=== PATIENT | male | born 2000 | race Caucasian/White ===

== ENCOUNTER 2023-05-23 21:54 | Emergency (ER) | payer SELFPAY ==
--- OUTSIDE RECORDS SUMMARY | 2023-05-23 21:57 | XMS REPORT | Continuity of Care Document ---
Author Name Unknown Address [address] [facility]. [address] [place] [id number] [facility] thcessentia healthect Address [address] [facility]. [address] [place] [address] Care Team Providers Care Material Controller Name Role Phone PCP, PATIENT DOES NOT HAVE A Primary Care Physic abhijit Unavailable JEFF YAÑEZ Attending Clinician Unavail able Taylor Stern PA-C Attending Clinician [phone] Unknown, Attending Attending Clinician Unavailab TAYLOR Hicks Attending Clinician Unavailable Rosangela Metz Attending Clinician [phone] ROSANGELA CASIANO Attending Clinician Unavailable JENNA WATERMAN Attending Clinician Unavailable Jenna Waterman MD Attending Clinician [phone] JOANNE MARCUS Attending Clinician Unavaila Joanne Boswell Attending Clinician + [phone] RUBI KRAUSE Attending Clinician Unavailable Rubi Griffiths Attending Clinician [phone] DONNA MACIEL Attending Clinician Unavailable UNKNOWN, ATTENDING Attending Clinician Unavailab александр Doctor Unassigned, Lynden Attending Clinician U nakul Zamorano RN, Lizzie Berrios Attending Clinician GILLIAN Mccarty Attending Clinician Unavailable Gillian Ferguson MD Attending Clinician [phone] Pauline Hodges Attending Clinician [phone] PAULINE TOMLINSON Attending Clinician Unavailable Ekaterina Garrison Attending Clinician [phone] Ekaterina FLORES Attending Clinician Unavailable Payers Payer Name Policy Type Policy Number Effective Date Expirati on Date Source MANAGED MEDICAID GENERIC NON-CONTRACT [id number] 2019 00:00:00 [place] [employer] [id number] 2021 00:00:00 Problems Condition Name Condition Details Condition Category Status Onset Date Resolution Date Last Treatment Date Treating Clinician Comments Source No known active problems No known active problems Disease [facility] Allergies, Adverse Reactions, Alerts Allergy Name Allergy Type Status Severity Reaction(s) Onset Date Inactive Date Treating Clinician Comments Source NO KNOWN ALLERGIE S Drug Class Active [facility] Social History Social Habit Start Date Stop Date Quantity Comments Source Gender identity [facility] Social function 2021-12-13 00:00:00 2021-12-13 00:00:00 [facility] Exposure to SARS-CoV-2 (event) 2021-12-02 00:00:00 2021-12-12 13:54:00 Not sure [facility] Tobacco use and exposure 2021-07-09 00:00:00 2021-07-09 00:00:00 Smokeless tobacco non-user [facility] Sex Assigned At 2000 00:00:00 2000 00:00:00 [facility] Smoking Status Start Date Stop Date Source Never smoked tobacco [facility] Unknown if ever smoked [facility] Medications Ordered Medication Name Filled Medication Name Start Date Stop Date Current Medication? Ordering Clinician Indication Dosage Frequency Signature (SIG) Comments Components Source ondansetron 4 mg disintegrat ing tablet 10-31 00:00: 00 Yes [id number] 4mg Take 1 tablet by mouth every 8 (eight) hours as needed for Nausea and Vomiting (N/V). [facility] naproxen 500 mg tablet 10-15 00:00: 00 10-26 04:59 :00 No [id number] 500mg Take 1 tablet by mouth 2 (two) times daily with meals as needed for Pain (scale 4-6) for up to 10 days. [facility] methocarbam oL 500 mg tablet 10-15 00:00: 00 10-21 04:59 :00 No [id number] 500mg Take 1 tablet by mouth 4 (four) times daily for 5 days. [facility] ondansetron (ZOFRAN (PF)) injection 4 mg 09-30 04:30: 00 09-30 04:03 :00 No 4mg 4 mg, Slow IV Push, ONCE, 1 dose, On Thu09/29/22 at 2330, EBENEZER [facility] NaCl 0.9% (NS) bolus infusion 1,000 mL 09-30 03:45: 00 09-30 04:05 :00 No 1000mL at 999 mL/hr, 1,000 mL, IV Infusion, ONCE, 1 dose, On Thu09/29/22 at 2245, EBENEZER [facility] bromphenira mine-pseudo ephedrine-D M (BROMFED DM) 2-30-10 mg/5 mL syrup 07-09 00:00: 00 12-13 00:00 :00 No [id number] 5mL Take 5 mL by mouth 4 (four) times daily as needed for Congestion /Allergies . [facility] ondansetron 4 mg disintegrat ing tablet 07-09 00:00: 00 12-13 00:00 :00 No [id number] 4mg Take 1 tablet by mouth every 8 (eight) hours as needed for Nausea and Vomiting (N/V). [facility] NaCl 0.9% (NS) bolus infusion 1,000 mL 11-07 01:45: 00 11-07 13:44 :00 No 1000mL at 999 mL/hr, 1,000 mL, IV Infusion, ONCE, 1 dose, Thu11/07/19 at 2045, STAT [facility] No known medications No Un maida [facility] No known medications No Un maida [facility] Vital Signs Vital Name Observation Time Observation Value Comments S segundo Systolic blood pressure 2022-10-31 19:53:00 126 mm[Hg] [facility] Diastolic blood pressure 2022-10-31 19:53:00 85 mm[Hg] [facility] Heart rate 2022-10-31 19:52:00 83 /min Unive [facility] Body temperature 2022-10-31 19:52:00 36.89 Cheryle [facility] Respiratory rate 2022-10-31 19:52:00 18 /min [facility] Body height 2022-10-31 19:52:00 177.8 cm [facility] Body weight 2022-10-31 19:52:00 79.697 kg [facility] BMI 2022-10-31 19:52:00 25.21 kg/m2 [facility] Oxygen saturation in Arterial blood by Pulse oximetry 2022-10-31 19:52:00 98 /min [facility] Systolic blood pressure 2022-10-15 19:25:00 118 mm[Hg] [facility] Diastolic blood pressure 2022-10-15 19:25:00 63 mm[Hg] [facility] Heart rate 2022-10-15 19:25:00 76 /min [facility] Body temperature 2022-10-15 19:25:00 36.72 Cheryle [facility] Respiratory rate 2022-10-15 19:25:00 16 /min [facility] Body weight 2022-10-15 19:25:00 85.231 kg [facility] Oxygen saturation in Arterial blood by Pulse oximetry 2022-10-15 19:25:00 98 /min [facility] Systolic blood pressure 2022-09-30 04:06:33 137 mm[Hg] [facility] Diastolic blood pressure 2022-09-30 04:06:33 59 mm[Hg] [facility] Heart rate 2022-09-30 04:06:33 84 /min [facility] Respiratory rate 2022-09-30 04:06:33 18 /min [facility] Oxygen saturation in Arterial blood by Pulse oximetry 2022-09-30 04:06:33 98 /min [facility] Body temperature 2022-09-30 02:22:00 37.72 Cheryle [facility] Body height 2022-09-30 02:22:00 175.3 cm [facility] Body weight 2022-09-30 02:22:00 85.639 kg [facility] BMI 2022-09-30 02:22:00 27.88 kg/m2 [facility] Body temperature 2022-08-06 23:49:00 37.22 Cheryle [facility] Systolic blood pressure 2022-08-06 23:47:00 127 mm[Hg] [facility] Diastolic blood pressure 2022-08-06 23:47:00 83 mm[Hg] [facility] Heart rate 2022-08-06 23:47:00 76 /min [facility] Respiratory rate 2022-08-06 23:47:00 16 /min [facility] Body weight 2022-08-06 23:47:00 85.775 kg [facility] Oxygen saturation in Arterial blood by Pulse oximetry 2022-08-06 23:47:00 100 /min [facility] Heart rate 2021-12-13 12:33:00 67 /min [facility] Body height 2021-12-13 12:33:00 177.8 cm [facility] Body weight 2021-12-13 12:33:00 82.146 kg [facility] BMI 2021-12-13 12:33:00 25.99 kg/m2 [facility] Oxygen saturation in Arterial blood by Pulse oximetry 2021-12-13 12:33:00 99 /min [facility] Systolic blood pressure 2021-12-13 12:33:00 117 mm[Hg] [facility] Diastolic blood pressure 2021-12-13 12:33:00 78 mm[Hg] [facility] Systolic blood pressure 2021-07-09 19:09:00 133 mm[Hg] [facility] Diastolic blood pressure 2021-07-09 19:09:00 71 mm[Hg] [facility] Heart rate 2021-07-09 19:09:00 80 /min [facility] Body temperature 2021-07-09 19:09:00 36.94 Cheryle [facility] Respiratory rate 2021-07-09 19:09:00 16 /min [facility] Body height 2021-07-09 19:09:00 175.3 cm [facility] Body weight 2021-07-09 19:09:00 79.425 kg [facility] BMI 2021-07-09 19:09:00 25.86 kg/m2 [facility] Body mass index (BMI) [Percentile] Per age and sex 2021-07-09 19:09:00 81.58 % [facility] Oxygen saturation in Arterial blood by Pulse oximetry 2021-07-09 19:09:00 99 /min [facility] Systolic blood pressure 2020-10-21 06:32:00 148 mm[Hg] [facility] Diastolic blood pressure 2020-10-21 06:32:00 76 mm[Hg] [facility] Heart rate 2020-10-21 06:32:00 120 /min [facility] Body temperature 2020-10-21 06:32:00 37.33 Cheryle [facility] Respiratory rate 2020-10-21 06:32:00 18 /min [facility] Body height 2020-10-21 06:32:00 175.3 cm [facility] Body weight 2020-10-21 06:32:00 81.647 kg [facility] BMI 2020-10-21 06:32:00 26.58 kg/m2 [facility] Oxygen saturation in Arterial blood by Pulse oximetry 2020-10-21 06:32:00 97 /min [facility] Systolic blood pressure 2019-11-08 00:54:00 135 mm[Hg] [facility] Diastolic blood pressure 2019-11-08 00:54:00 67 mm[Hg] [facility] Heart rate 2019-11-08 00:54:00 101 /min [facility] Respiratory rate 2019-11-08 00:54:00 19 /min [facility] Oxygen saturation in Arterial blood by Pulse oximetry 2019-11-08 00:54:00 99 /min [facility] Body temperature 2019-11-07 23:16:00 36.94 Cheryle [facility] Body weight 2019-11-07 23:16:00 80.287 kg [facility] Procedures Procedure Date / Time Performed Performing Clinician Source CREATINE KINASE 2022-09-30 03:20:00 [facility] 2022-09-30 03:20:00 Jenna Waterman [facility] TROPONIN I 2022-09-30 03:20:00 Jenna Waterman [facility] COMP. METABOLIC PANEL (91090) 2022-09-30 03:20:00 Jenna Waterman [facility] CBC WITH DIFF 2022-09-30 03:20:00 Jenna Waterman [facility] URINALYSIS 2022-09-30 03:20:00 Jenna Waterman [facility] RAPID STREP SCREEN FOR GROUP A 2022-09-30 03:20:00 Jenna Waterman [facility] URINE DRUG (IMMUNOASSAY) - COMPREHENSIVE DRUG SCREEN W/O REFLEX 2022-09-30 03:20:00 Jenna Waterman [facility] CONSENT/REFUSAL FOR DIAGNOSIS AND TREATMENT 2022-09-30 02:08:13 Doctor Unassigned, Lynden [facility] ASSIGNMENT OF BENEFITS 2022-08-07 00:50:49 Docto r Unassigned, Lynden [facility] NOTICE OF PRIVACY PRACTICES 2022-08-06 23:43:48 Doctor Unassigned, Lynden [facility] CONSENT/REFUSAL FOR DIAGNOSIS AND TREATMENT 2022-08-06 23:43:08 Doctor Unassigned, Lynden [facility] ASSIGNMENT OF BENEFITS 2021-12-12 18:54:05 Docto r Unassigned, Lynden [facility] POCT MOLECULAR FLU 2021-07-09 19:19:00 Gillian Ferguson [facility] XR CHEST 1 VW 2019-11-07 23:30:36 Ekaterina Flores [facility] EKG-12 LEAD 2019-11-07 23:22:37 Ekaterina Flores [facility] CONSENT/REFUSAL FOR DIAGNOSIS AND TREATMENT 2019-11-07 23:11:39 Doctor Unassigned, Lynden [facility] Encounters Start Date/Time End Date/Time Encounter Type Admission Type Attending [facility] Care Department Encounter ID Source 2022-11-17 13:30:00 2022-11-17 13:30:00 Outpatient JEFF STRAUSS [facility] [id number] [facility] 2022-10-31 14:20:00 2022-10-31 14:40:00 Urgent Care Taylor Stern Unknown, Attending [facility] 1.2.840.114 350.1.13.10 4.2.7.2.686 [id number] [facility] 2022-10-31 14:20:00 2022-10-31 14:20:00 Outpatient R TAYLOR STERN [facility] [id number] [facility] 2022-10-15 14:20:00 2022-10-15 14:40:00 Urgent Care Rosangela Casiano Unknown, Attending [facility] 1.2.840.114 350.1.13.10 4.2.7.2.686 [id number] [facility] 2022-10-15 14:20:00 2022-10-15 14:20:00 Outpatient R ROSANGELA CASIANO [facility] [id number] [facility] 2022-09-29 21:24:00 2022-09-30 00:03:00 Emergency X JENNA WATERMAN [facility] [id number] [facility] 2022-09-29 21:24:00 2022-09-30 00:03:00 Emergency Jenna Waterman [facility] 1..840.114 350.1.13.10 4.2.7.2.686 [id number] [facility] 2022-09-29 12:20:00 2022-09-29 12:20:00 Outpatient R [facility] [id number] [facility] 2022-08-06 18:49:00 2022-08-06 20:26:00 Emergency X JOANNE MARCUS [facility] [id number] [facility] 2022-08-06 18:49:00 2022-08-06 20:26:00 Emergency Joanne Marcus [facility] 1.2840.114 350.1.13.10 4.2.7.2.686 [id number] [facility] 2021-12-13 07:30:00 2021-12-13 07:49:06 Outpatient R RUBI KRAUSE [facility] [id number] [facility] 2021-12-13 07:30:00 2021-12-13 07:49:06 Office Visit Rubi Krause [facility] 1..840.114 350.1.13.10 4.2.7.2.686 [id number] [facility] 2021-12-12 14:00:00 2021-12-12 14:00:00 Outpatient R WILLI, WILFRID [facility] [id number] [facility] 2021-12-12 00:00:00 2021-12-12 00:00:00 Orders Only Doctor Unassigned, Lynden [facility] 1.2840.114 350.1.13.10 4.2.7.2.686 [id number] [facility] 2021-07-10 00:00:00 2021-07-10 00:00:00 Telephone Lizzie Zamorano [facility] 1.2840.114 350.1.13.10 4.2.7.2.686 [id number] [facility] 2021-07-09 14:00:00 2021-07-09 14:24:22 Outpatient R GILLIAN FERGUSON [facility] [id number] [facility] 2021-07-09 14:00:00 2021-07-09 14:24:22 Urgent Care Gillian Ferguson [facility] 1.2.840.114 350.1.13.10 4.2.7.2.686 [id number] [facility] 2020-10-21 01:39:00 2020-10-21 02:33:00 Emergency Pauline Tomlinson [facility] 1.2.840.114 350.1.13.10 4.2.7.2.686 [id number] [facility] 2020-10-21 01:39:00 2020-10-21 02:33:00 Emergency X PAULINE TOMLINSON [facility] [id number] [facility] 2019-11-07 18:20:00 2019-11-07 19:55:00 Emergency Ekaterina Flores Ana [facility] 1.2.840.114 350.1.13.10 4.2.7.2.686 [id number] [facility] 2019-11-07 18:20:00 2019-11-07 18:20:00 Emergency X Ekaterina FLORES [facility] E[facility] [id number] [facility] Results Test Description Test Time Test Comments Results Result Co mments Source [facility] 03:59:54* Test Item Value Reference Range Interpretation Comme nts MAGNESIUM (test code = 0617154640) 1.9 mg/dL 1.7-2.4 Lab Interpretation (test cod e = 90605-8) Normal [facility] MET[facility]OLIC PANEL (32660)2022-09-30 03:59:34* Test Item Value Reference Range Interpretation Comme nts NA (test code = 4154399575) 139 mmol/L 135-145 K (test code = 8526183806) 3.8 mmol/L 3.5-5.0 CL (test code = 1251089773) 101 mmol/L 98-108 CO2 TOTAL (test code = 3731012220) 31 mmol/L 23-31 AGAP (test code = 1895861356) 7 2-16 BUN (test code = 9580841644) 5 mg/dL 7-23 L GLUCOSE (test code = 6811780703) 90 mg/dL 70-110 CREATININE (test code = 3781028266) 0.82 mg/dL 0.60-1.25 TOTAL BILI (test code = 0111656685) 0.3 mg/dL 0.1-1.1 CALCIUM (test code = 7038931881) 9.8 mg/dL 8.6-10.6 T PROTEIN (test code = 3971523499) 7.6 g/dL 6.3-8.2 ALBUMIN (test code = 3968772177) 4.7 g/dL 3.5-5.0 ALK PHOS (test code = 5267924881) 92 U/L 34-122 ALTv (test code = 1742-6) 49 U/L 5-50 AST(SGOT) (test code = 6188102396) 38 U/L 13-40 eGFR (test code = 6954632554) 119.8 mL/min/1.73m2 MIGUEL (test code = MIGUEL) Association of Glomerular Filtration Rate (GFR) and Staging of Kidney Disease* + --+ --+ ------+| GFR (mL/min/1.73 m2) ?| With Kidney Damage ?| ?Without Kidney Damage+ --------+ --------+ +| ?>90 ?| ?Stage one ?| ? Normal ?+ ---+ ---+ -------+| ?60-89 ?| ?Stage two ?| ? Decreased GFR ? + --+ --+ ------+| ?30-59 ?| ?Stage three ?| ? Stage three ? + --+ --+ ------+| ?15-29 ?| ?Stage four ? | ? Stage four ?+ ---+ ---+ -------+| ?<15 (or dialysis) ? ?| ?Stage five ? | ? Stage five ?+ ---+ ---+ -------+ *Each stage assumes the associated GFR level has been in effect for at least three months. ?Stages 1 to 5, with or without kidney disease, indicate chronic kidney disease. Notes: Determination of stages one and two (with eGFR >59mL/min/1.73 m2) requires estimation of kidney damage for at least three months as defined by structural or functional abnormalities of the kidney, manifested by either:Pathological abnormalities or Markers of kidney damage (including abnormalities in the composition of the blood or urine or abnormalities in imaging tests). Lab Interpretation (test code = 86332-4) Abnormal [facility] BNYKGI0787-74-52 03:59:13* Test Item Value Reference Range Interpretation Comme nts CK (test code = 6487400106) 76 U/L 33-194 Lab Interpretation (test cod e = 50163-5) Normal [facility] WITH YHWZ8353-64-54 03:58:32* Test Item Value Reference Range Interpretation Comme nts WBC (test code = 6690-2) 5.10 See_Comment [Automated [employer]] The system which generated this result transmitted reference range: 4.20 - 10.70 10*3/?L. The reference range was not used to interpret this result as normal/abnormal. RBC (test code = 789-8) 4.92 See_Comment [Automated messa ge] The system which generated this result transmitted reference range: 4.26 - 5.52 10*6/?L. The reference range was not used to interpret this result as normal/abnormal. HGB (test code = 718-7) 15.1 g/dL 12.2-16.4 HCT (test code = 4544-3) 44.3 % 38.4-49.3 MCV (test code = 787-2) 90.0 fL 81.7-95.6 MCH (test code = 785-6) 30.7 pg 26.1-32.7 MCHC (test code = 786-4) 34.1 g/dL 31.2-35.0 RDW-SD (test code = 27830-5) 40.1 fL 38.5-51.6 RDW-CV (test code = 788-0) 12.1 % 12.1-15.4 PLT (test code = 777-3) 136 See_Comment L [Automated [employer]] The system which generated this result transmitted reference range: 150 - 328 10*3/?L. The reference range was not used to interpret this result as normal/abnormal. MPV (test code = 25666-6) 12.6 fL 9.8-13.0 NRBC/100 WBC (test code = 5482528225) 0.0 See_Comment [Automated me ssage] The system which generated this result transmitted reference range: 0.0 - 10.0 /100 WBCs. The reference range was not used to interpret this result as normal/abnormal. NRBC x10^3 (test code = 4924820430) See_Comment [Automated messa ge] The system which generated this result transmitted reference range: 10*3/?L. The reference range was not used to interpret this result as normal/abnormal. GRAN MAT (NEUT) % (test code = 770-8) 46.8 % IMM GRAN % (test code = 2796146272) 0.40 % LYMPH % (test code = 736-9) 27.1 % MONO % (test code = 5905-5) 23.7 % EOS % (test code = 713-8) 1.4 % BASO % (test code = 706-2) 0.6 % GRAN MAT x10^3(ANC) (test code = 2003683861) 2.39 10*3/uL 1.99-6.95 IMM GRAN x10^3 (test code = 2806690014) 0.00-0.06 LYMPH x10^3 (test code = 731-0) 1.38 10*3/uL 1.09-3.23 MONO x10^3 (test code = 742-7) 1.21 10*3/uL 0.36-1.02 H EOS x10^3 (test code = 711-2) 0.07 10*3/uL 0.06-0.53 BASO x10^3 (test code = 704-7) 0.03 10*3/uL 0.01-0.09 Lab Interpretation (test code = 19053-7) Abnormal [facility] MOLECULAR PDT8856-25-00 19:30:58* Test Item Value Reference Range Interpretation Comme nts POCT Molecular FluA (test co de = 25188-4) Negative Negative POCT Molecular FluB (test co de = 96269-3) Negative Negative Lab Interpretation (test cod e = 25849-7) Normal [facility] Notes Date/Time Note Provider Source 2022-09-30 00:02:12 wPkrSbwzuj59jd1f4Y65RLSHkERQ/fPINxFPIBUq XZfFGI T+Yw9EohFWIraeNEnp0193-17-97B88:02:12Formattin g of this note might be different from the original.Pt discharged with diagnosis of weakness, marijuana use, and abnormal EKG. Printed and verbal instructions reviewed with and given to pt. Pt verbalized understanding of teaching and recommended follow-up. Denies questions or concerns at this time. Pt ambulatory at discharge. Appears in no apparent distress. No ataxia noted. [address]16-8P[address] MnpyOE0026-42-50G45:02:56[facility] department NoteTXT1.2.840.847876.1.13.104.2.7.2.958502|18 [id number] for patient alyt01071-1SksuJV106833365Idcjwt R Goodrich RN[address] StreetBnhjSdtdvrzesEnfjdtpwhDMDS2592360089OSGGTAFIUG RHHYDGRWCHCF6796-32-58H98:02:561.2.840.899848. 1.72.3.15|1.2.840.416883.1.13.104.2.7.2.019748 _[id number] Lo Arthur RN [facility] 2022-09-29 23:24:04 tg/VKf0+BL0lAbHkPFni8MWTb2BJsH84ExWKBfPV tClnFL Mfx94INbPMoShcs9fW0650-98-27U44:24:04Formattin g of this note might be different from the original[place] [address]-6Qurdbfwsn department UmibLW2777-23-53E30:24:13[facility] NoteTXT1.2.840.690201.1.13.104.2.7.2.817530|18 [id number] for patient kmfj82391-2DkkiAZOHCXGLNK[id number] MIQPDXLDFRGC4211-06-21G75:24:131.2.840.756708. 1.72.3.15|1.2.840.336132.1.13.104.2.7.2.396318 _[id number] [facility] 2022-09-29 21:20:49 9I3bUJgc8/0Nm54PKtnxlss7Wl6SynYeZXQWOOFn hKwErX WaojPZxTcLW1lcTp/X2086-91-53H21:20:49Formattin g of this note might be different from the original.Pt arrived ambulatory with complaints of lightheadedness and nausea intermittently since last Thursday. Pt denies any syncope. Does work out in the heat 24628-4Uhudooiuj department Triage ewtiFK2463-45-44L66:21:55[facility] Triage noteTXT1.2.840.145101.1.13.104.2.7.2.102172|18 [id number] for patient ifie77412-2Pwoskhiul department CfedSG544616764Efbejw D Roman RN[id number] KDEWYQJSLEHG2472-08-99R52:21:551.2.840.744568. 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 Pt denies any syncope. Does work out in the heat HPI The patient is a 22-year-old gentleman who presents with generalized weakness. He works in [employer] and is in [place] quite often throughout the day. He states that for the past few days he has been weak which is progressed got worse. He denies any nausea, vomiting, diarrhea. He admits to some vague chest pain. He presents for evaluation.History provided by: PatientWeaknessLocation: GeneralizedSeverity: ModerateOnset quality: GradualDuration: 5 daysTiming: ConstantRelieved by: NothingWorsened by: NothingAssociated symptoms: fatigue and sore throat Associated symptoms: no abdominal pain, no chest pain, no cough, no fever, no headaches, no nausea, no shortness of breath, no vomiting and no wheezing Past Medical History / Immunizations No past medical history on file.Tetanus received in last 5 years: Unknown Past Surgical History No past surgical history on file.Allergies No Known AllergiesSocial History Tobacco Use Never smoked or used smokeless tobacco. Review of Systems Review of Systems Constitutional: Positive for fatigue. Negative for chills, fever and unexpected weight change. HENT: Positive for sore throat. Eyes: Negative. Negative for discharge and itching. Respiratory: Negative. Negative for cough, chest tightness, shortness of breath and wheezing. Cardiovascular: Negative. Negative for chest pain and palpitations. Gastrointestinal: Negative. Negative for abdominal distention, abdominal pain, nausea and vomiting. Genitourinary: Negative. Negative for dysuria, urgency, frequency and flank pain. Musculoskeletal: Negative. Skin: Negative. Negative for color change, pallor and wound. Neurological: Positive for weakness. Negative for dizziness, syncope, light-headedness and headaches. Psychiatric/Behavioral: Negative. Negative for agitation and behavioral problems. All other systems reviewed and are negative.Endocrine: Endocrine negativePhysical Exam ED Triage Vitals [09/29/222121] Weight 85.6 kg (188 lb 12.8 oz) Actual or estimated Actual Height 1.753 m (5' 9") BP (!) 146/72 Pulse 94 Resp 16 Temp 37.7 ?C (99.9 ?F) Temp source Oral SpO2 100 % Measured on Room air Physical ExamVitals reviewed. Constitutional: Appearance: He is well-developed. HENT: Head: Normocephalic and atraumatic. Eyes: Conjunctiva/sclera: Conjunctivae normal. Cardiovascular: Rate and Rhythm: Normal rate and regular rhythm. Heart sounds: Normal heart sounds. Pulmonary: Effort: Pulmonary effort is normal. No respiratory distress. Breath sounds: Normal breath sounds. No stridor. No wheezing or rales. Abdominal: General: Bowel sounds are normal. There is no distension. Palpations: Abdomen is soft. Tenderness: There is no abdominal tenderness. There is no guarding or rebound. Musculoskeletal: General: Normal range of motion. Skin: General: Skin is warm and dry. Neurological: Mental Status: He is alert and oriented to person, place, and time. Cranial Nerves: No cranial nerve deficit. Sensory: No sensory deficit. Psychiatric: Behavior: Behavior normal. Labs Lab Results CBC WITH DIFF - Abnormal Result Value Ref Range WBC 5.10 4.20 - 10.70 10*3/?L RBC 4.92 4.26 - 5.52 10*6/?L HGB 15.1 12.2 - 16.4 g/dL HCT 44.3 38.4 - 49.3 % MCV 90.0 81.7 - 95.6 fL MCH 30.7 26.1 - 32.7 pg MCHC 34.1 31.2 - 35.0 g/dL RDW-SD 40.1 38.5 - 51.6 fL RDW-CV 12.1 12.1 - 15.4 % PLT 136 (*) 150 - 328 10*3/?L MPV 12.6 9.8 - 13.0 fL NRBC/100 WBC 0.0 0.0 - 10.0 /100 WBCs NRBC x10^3 <0.01 10*3/?L GRAN MAT (NEUT) % 46.8 % IMM GRAN % 0.40 % LYMPH % 27.1 % MONO % 23.7 % EOS % 1.4 % BASO % 0.6 % GRAN MAT x10^3(ANC) 2.39 1.99 - 6.95 10*3/uL IMM GRAN x10^3 <0.03 0.00 - 0.06 10*3/uL LYMPH x10^3 1.38 1.09 - 3.23 10*3/uL MONO x10^3 1.21 (*) 0.36 - 1.02 10*3/uL EOS x10^3 0.07 0.06 - 0.53 10*3/uL BASO x10^3 0.03 0.01 - 0.09 10*3/uL COMP. METABOLIC PANEL (59332) - Abnormal NA 139 135 - 145 mmol/L K 3.8 3.5 - 5.0 mmol/L CL 101 98 - 108 mmol/L CO2 TOTAL 31 23 - 31 mmol/L AGAP 7 2 - 16 BUN 5 (*) 7 - 23 mg/dL GLUCOSE 90 70 - 110 mg/dL CREATININE 0.82 0.60 - 1.25 mg/dL TOTAL BILI 0.3 0.1 - 1.1 mg/dL CALCIUM 9.8 8.6 - 10.6 mg/dL T PROTEIN 7.6 6.3 - 8.2 g/dL ALBUMIN 4.7 3.5 - 5.0 g/dL ALK PHOS 92 34 - 122 U/L ALTv 49 5 - 50 U/L AST(SGOT) 38 13 - 40 U/L eGFR 119.8 mL/min/1.73m2 URINALYSIS - Abnormal APPEARANCE Clear Clear COLOR Yellow Yellow PH 6.0 4.8 - 8.0 SP GRAVITY 1.009 1.003 - 1.030 GLU U QUAL Normal Normal BLOOD 1+ (*) Negative KETONES Negative Negative PROTEIN Negative Negative UROBILIN Normal Normal BILIRUBIN Negative Negative NITRITE Negative Negative LEUK ESTEPHANIE Negative Negative RBC/HPF <1 0 - 3 HPF WBC/HPF 0 0 - 5 HPF BACTERIA Negative Negative MUCOUS Slight (*) Negative LPF SQ EPITH <1 HPF URINE DRUG (IMMUNOASSAY) - COMPREHENSIVE DRUG SCREEN W/O REFLEX - Abnormal AMPHET Negative Negative BARRY U Negative Negative BENZO U Negative Negative Cocaine Metabolite Negative Negative METHADONE Negative Negative OPIATES Negative Negative PCP Negative Negative THC Presumptive Positive (*) Negative CREATINE KINASE - Normal CK 76 33 - 194 U/L MAGNESIUM - Normal MAGNESIUM 1.9 1.7 - 2.4 mg/dL RAPID STREP SCREEN FOR GROUP A - Normal Molecular Strep Negative Negative THROAT CULTURE Imaging No orders to display Orders and Treatments Orders Placed This Encounter Procedures CBC WITH DIFF COMP. METABOLIC PANEL (38364) URINALYSIS URINE DRUG (IMMUNOASSAY) - COMPREHENSIVE DRUG SCREEN W/O REFLEX CREATINE KINASE MAGNESIUM RAPID STREP SCREEN FOR GROUP A THROAT CULTURE Orders Placed This Encounter Medications NaCl 0.9% (NS) bolus infusion 1,000 mL ondansetron (ZOFRAN (PF)) injection 4 mg Procedures EKGTime 2308Normal sinusT wave inversions in anterior leadsAxis normalIntervals normalABNotes & MDM Patient was evaluated for an emergency medical condition related to LIGHTHEADEDNESS and NauseaDDXDehydrationRhabdomyolysisHistory and/or review of systems is limited by:History limited: None.Diagnosis/Impression as of 09/29/22 2319 Weakness Marijuana use Abnormal EKG Medical Decision MakingProblems Addressed:Abnormal EKG: acute illness or injuryMarijuana use: chronic illness or injuryWeakness: acute illness or injuryAmount and/or Complexity of Data ReviewedLabs: ordered. Decision-making details documented in ED Course.RiskPrescription drug management.Limitations to patient care and compliance: none.Assessment/Summary:The patient has a negative work-up in the emergency department. However, he does have a abnormal EKG. The patient will be referred to cardiology on outpatient basis. He was given IV fluids here in the emergency department. Is unclear as to etiology of the patient's weakness. However, it can be worked up as an outpatient. He will be discharged to follow-up. He can return for any questions or concerns.History, physical exam findings, results of visit, differential diagnosis, medication regimens and plan of future care have been considered. Additional MDM may be found in the ED course. Differential diagnosis considered and final disposition made based on information gathered during evaluation and may not be completely ruled out or specifically listed. Vital signs were rechecked before final disposition.Diagnosis Final diagnoses: [R53.1] Weakness (Primary) [F12.90] Marijuana use [R94.31] Abnormal EKG Disposition & Follow Up ED Disposition ED Disposition Disch - Home Condition Stable Comment -- Patient's Medications No medications on file Contact information for follow-up Pcp, Patient Does Not Have A Relationship: PCP - General [facility] [address] Jenna Waterman Jr. MDClinical Fire Captain [facility] Emergency DepartmentDragon Dictation Software is used frequently and may produce errors. Promptly contact for obvious discrepancies. Jenna Waterman MD09/29/22 [id number] Emergency department [id number] Emergency department [id number] for patient [id number] department Note[id number] STATE [id number]. [id number] _[id number] [facility]
--- NOTE | 2023-05-23 23:51 | ER ---
Nurse's Notes [facility] Name: Kodi Calhoun Age: 23 yrs Sex: Male : 2000 Arrival Date: 05/23/2023 Time: 21:54 Bed Treatment Private MD: Diagnosis: Non-Displaced Fracture of the Fifth Metacarpal, Right Hand Presentation: 05/22 22:18 Chief complaint: Patient states: Swelling and pain to right hand onset yesterday. PT cm10 states that he dropped sheet metal on his hand. Pt noted to have swelling to right hand above 5th digit. Coronavirus screen: Client denies travel out of the [place] in the last 14 days. At this time, the client does not indicate any symptoms associated with coronavirus-19. Ebola Screen: Patient denies travel to an Ebola-affected area in the 21 days before illness onset. No symptoms or risks identified at this time. Initial Sepsis Screen: Does the patient meet any 2 criteria? No. Patient's initial sepsis screen is negative. Does the patient have a suspected source of infection? No. Patient's initial sepsis screen is negative. Risk Assessment: Do you want to hurt yourself or someone else? Patient reports no desire to harm self or others. Onset of symptoms was May 23, 2023. 22:18 Method Of Arrival: Ambulatory cm10 22:18 Acuity: DORI 4 cm10 Triage Assessment: 22:20 General: Appears in no apparent distress. comfortable, Behavior is calm, cooperative. cm10 Pain: Complains of pain in medial aspect of right hand, dorsal aspect of proximal phalanx of right little finger and dorsum of right hand. Neuro: No deficits noted. Level of Consciousness is awake, alert, obeys commands, Oriented to person, place, time, situation, Appropriate for age. Respiratory: No deficits noted. Airway is patent Respiratory effort is even, unlabored, Respiratory pattern is regular, symmetrical. 22:21 Musculoskeletal: Swelling present in right hand and dorsum of right hand and dorsal cm10 aspect of proximal phalanx of right little finger and medial aspect of right hand Reports pain in dorsum of right hand and dorsal aspect of proximal phalanx of right little finger and medial aspect of right hand. 22:30 Injury Description: swelling. ha1 Historical: - Allergies: 22:20 No Known Allergies; cm10 - Home Meds: 22:20 None [Active]; cm10 - PMHx: 22:20 None; cm10 - PSHx: 22:20 None; cm10 - Immunization history:: Adult Immunizations up to date. - Infectious Disease History:: Denies. - Social history:: Smoking status: Reported history of juuling and/or vaping. Screenin:[address] [facility] ED Fall Risk Assessment (Adult) History of falling in the last 3 months, cm10 including since admission No falls in past 3 months (0 pts) Confusion or Disorientation No (0 pts) Intoxicated or Sedated No (0 pts) Impaired Gait No (0 pts) Mobility Assist Device Used No (0 pt) Altered Elimination No (0 pt) Score/Fall Risk Level 0 - 2 = Low Risk Oriented to surroundings, Maintained a safe environment, Hourly rounding (assess needs \T\ fall precautionary measures) done. Abuse screen: Denies threats or abuse. Denies injuries from another. Nutritional screening: No deficits noted. Tuberculosis screening: No symptoms or risk factors identified. Assessment: 22:30 General: Appears uncomfortable, Behavior is calm, cooperative. Pain: Complains of pain ha1 in right hand and dorsal aspect of proximal phalanx of right little finger Pain does not radiate. Pain currently is 6 out of 10 on a pain scale. Quality of pain is described as aching. Neuro: Level of Consciousness is awake, alert, obeys commands, Oriented to person, place, time, situation. Cardiovascular: Capillary refill < 3 seconds Patient's skin is warm and dry. Respiratory: Airway is patent Respiratory effort is even, unlabored, Respiratory pattern is regular, symmetrical. Musculoskeletal: Reports pain in dorsum of right hand. 23:30 Reassessment: Patient and/or family updated on plan of care and expected duration. Pain ha1 level reassessed. Patient is alert, oriented x 3, equal unlabored respirations, skin warm/dry/pink. Vital Signs: 22:18 BP 135 / 65; Pulse 81; Resp 18; Temp 97.7(TE); Pulse Ox 100% on R/A; Weight 78.6 kg; cm10 Height 5 ft. 10 in. ; Pain 02/18; 23:00 BP 129 / 67; Pulse 79; Resp 17 S; Pulse Ox 100% on R/A; ha1 05/23 00:00 BP 133 / 65; Pulse 81; Resp 17 S; Temp 98.1; Pulse Ox 100% on R/A; ha1 05/22 22:18 Body Mass Index 24.86 (78.60 kg, 177.8 cm) cm10 05/22 22:18 Pain Scale: Adult cm10 ED Course: 05/22 22:03 Patient arrived in ED. gm2 22:04 David Zavala MD is Attending Physician. ec2 22:20 Triage completed. cm10 22:20 Arm band placed on Patient placed in an exam room, on a stretcher. cm10 22:33 Patient has correct armband on for positive identification. Provided Education on: ER cm10 process and procedures.. 22:52 Hand Right 3 View XRAY In Process Unspecified. EDMS 23:51 Elan Connors MD is Referral Physician. ec2 05/23 00:00 Orthoglass splint: Ulnar gutter/Boxer splint applied on right forearm. pf1 00:00 Patient did not have IV access during this emergency room visit. pf1 00:00 ulnar gutter splint placement. pf1 Administered Medications: No medications were administered Medication: 05/22 22:33 VIS not applicable for this client. cm10 Outcome: 23:51 Discharge ordered by MD. 2 05/23 00:12 Discharged to home ambulatory, pf1 Condition: stable Discharge instructions given to patient, Instructed on discharge instructions, follow up and referral plans. Demonstrated understanding of instructions, follow-up care, medications, Prescriptions given X 1, 00:13 Patient left the ED. pf1 Signatures: Dispatcher [employer] EDMA Kristen Garcia RN RN ha1 Finley, Pamala, RN RN pf1 Khushi Menendze RN RN 10 David Zavala MD MD 2 Genoveva Coyle 2
--- NOTE | 2023-05-23 23:51 | EDPHYS ---
Physician Documentation [facility] Name: Kodi Calhoun Age: 23 yrs Sex: Male : 2000 Arrival Date: 05/23/2023 Time: 21:54 Bed Treatment Private MD: ED Physician David Zavala HPI: 05/22 22:22 This 23 yrs old Male presents to ER via Ambulatory with complaints of Hand Injury. ec2 22:22 Patient arrives today for right hand pain. Patient complaining of pain at the fourth ec2 and fifth metacarpal regions. Reports that he dropped an object on it yesterday. Denies any other concerns.. Historical: - Allergies: 22:20 No Known Allergies; cm10 - Home Meds: 22:20 None [Active]; cm10 - PMHx: 22:20 None; cm10 - PSHx: 22:20 None; cm10 - Immunization history:: Adult Immunizations up to date. - Infectious Disease History:: Denies. - Social history:: Smoking status: Reported history of juuling and/or vaping. ROS: 22:22 Constitutional: as per hpi ec2 Exam: 22:22 Constitutional: GEN: NAD Head: atraumatic Eyes: EOMI Ears: External ears are ec2 normal. CV: regular rate LUNGS: no respiratory distress ABD: non-distended SKIN: no evidence of rashes MSK: Swelling to the fourth and fifth metacarpals, TTP identified. Intact distal neurovascular status. No open wounds. NEURO: moves all extremities equally Vital Signs: 22:18 BP 135 / 65; Pulse 81; Resp 18; Temp 97.7(TE); Pulse Ox 100% on R/A; Weight 78.6 kg; cm10 Height 5 ft. 10 in. ; Pain 1/10; 23:00 BP 129 / 67; Pulse 79; Resp 17 S; Pulse Ox 100% on R/A; ha1 05/23 00:00 BP 133 / 65; Pulse 81; Resp 17 S; Temp 98.1; Pulse Ox 100% on R/A; ha1 05/22 22:18 Body Mass Index 24.86 (78.60 kg, 177.8 cm) cm10 05/22 22:18 Pain Scale: Adult cm10 MDM: 05/22 22:22 Patient medically screened. ec2 22:22 Data reviewed: vital signs. ED course: Patient arrives today for evaluation of a right ec2 hand injury. Examination remarkable for hand findings as above. Will obtain radiograph to evaluate for injury. Evaluate for contusion, fracture. . 23:10 ED course: Hand x-ray independently reviewed and interpreted by me, shows mildly ec2 angulated fracture of the fifth metacarpal. Will place patient in ulnar gutter splint and have follow-up outpatient with orthopedic surgery.. 05/22 22:21 Order name: Hand Right 3 View XRAY cm10 05/22 23:08 Order name: Splint - Ulnar Gutter; Complete Time: 00:12 ec2 Administered Medications: No medications were administered Disposition Summary: 05/23/23 23:51 Discharge Ordered Notes: Location: Home ec2 Problem: new ec2 Symptoms: have improved ec2 Condition: Stable ec2 Diagnosis - Displaced Fracture of the Fifth Metacarpal, Right Hand ec2 - Non-Displaced Fracture of the Fifth Metacarpal, Right Hand ec2 Followup: ec2 - With: Elan Connors MD - When: - Reason: Recheck today's complaints Discharge Instructions: - Discharge Summary Sheet ec2 Forms: - Medication Reconciliation Form ec2 - Thank You Letter ec2 - Antibiotic Education ec2 - Prescription Opioid Use ec2 - Patient Portal Instructions ec2 - Leadership Thank You Letter ec2 Prescriptions: - acetaminophen-codeine 300-60 mg Oral tablet - take 1 tablet ORAL route 4 times per day; 15 tablet; Refills: 0, Product ec2 Selection Permitted Signatures: Dispatcher [employer] Khushi Zapien RN RN 10 David Zavala MD MD ec2 Corrections: (The following items were deleted from the chart) 23:50 23:10 ED course: Hand x-ray independently reviewed and interpreted by me, shows mildly ec2 angulated fracture of the fifth metacarpal. Will place patient in ulnar gutter splint and have follow-up outpatient with repeated surgery.. ec2
[2023-05-24 08:03] VITALS: BP 135/65; TEMP 97.7; O2SAT 100
--- NOTE | 2023-05-26 22:11 | RAD REPORT ---
EXAM DESCRIPTION: RAD - Hand Right 3 View - 05/23/2023 10:50 pm CLINICAL HISTORY: 23 years Male, Swelling;Pain TECHNIQUE: 3 views COMPARISON: None. FINDINGS: BONES/JOINT: Fracture of fifth metacarpal neck with mild volar angulation. Remaining osseo us structures are intact without fracture or dislocation. Joint spaces are well-preserved. SOFT TISSUES: Soft tissue swelling at the fracture site. No radiopaque foreign body. IMPRESSION: 1. Fifth metacarpal neck fracture with mild volar angulation. Electronically signed by: Moses Vizcarra MD 05/24/2023 12:18 AM CDT Due to temporary technical issues with the PACS/Fluency reporting system, reports are being signed by the in house radiologists without review as a courtesy to insure prompt reporting. The interpreting radiologist is fully responsible for the content of the report.
== END 2023-05-24 00:13 | disposition home or self-care (01) ==
LOC: ER 21:54
PROC: 2W3EX1Z Immobilization of Right Hand using Splint (ICD-10-PCS; principal; 2023-05-24)
DX: S62.306A Unspecified fracture of fifth metacarpal bone, right hand, initial encounter for closed fracture (principal)
CPT/HCPCS: 99283

== ENCOUNTER 2023-12-02 18:04 | Emergency (ER) | payer SELFPAY ==
[2023-12-02] MEDS ORDERED: KETOROLAC 30 MG/ML INJ ONE (19:02)
[2023-12-02] MEDS ORDERED: NA CHLORIDE 0.9% 1,000 ML ONE (19:02)
[2023-12-02] MEDS ORDERED: ONDANSETRON 4 MG/2 ML VIAL ONE (19:02)
[2023-12-02] MEDS ORDERED: FAMOTIDINE 20 MG/2 ML VIAL IV ONE (19:02)
[2023-12-02 19:17] LABS: Absolute Lymphocytes (CBC) 1.2 K/uL (0.7-4.9); Absolute Monocytes 0.6 K/uL (0.1-1.3); Absolute Neutrophil 5.9 K/uL (1.8-8.0); Basophils % 0.3 % (0-1.3); Eosinophils % 0.1 % (0-4.4); Hematocrit 44.6 % (39.6-49.0); Hemoglobin 15.7 g/dL (13.6-17.9); Lymphocytes % 15.7 % (15.3-44.8); MCH 30.2 pg (27.0-35.0); MCHC 35.3 g/dL (32.0-36.0); MCV 85.5 fL (80-100); MPV 10.1 fL (7.6-11.3); Monocytes % 7.5 % (3.3-12.3); Neutrophils % 76.4 % (41.7-73.7); Nucleated Red Blood Cells % 0.1 % (0-0); Platelets 174 thou/uL (152-406); RBC Red Blood Cell Count 5.21 M/uL (4.33-5.43); Red Cell Distribution Width 13.1 % (12.1-15.2)
[2023-12-02 19:36] LABS: Albumin 4.7 g/dL (3.4-5.0); Albumin/Globulin Ratio 1.5 (1.1-1.8); Anion Gap 10.4 mEq/L (5.0-15.0); Bilirubin Total 0.7 mg/dL (0.2-1.0); Globulin 3.2 g/dL (2.3-3.5); Potassium 3.4 mEq/L (3.5-5.1); Protein, Total 7.9 g/dL (6.4-8.2)
--- NOTE | 2023-12-02 19:57 | RAD REPORT ---
EXAMINATION: CT ABDOMEN AND PELVIS WITH CONTRAST CLINICAL INDICATION: Abdominal pain TECHNIQUE: CT abdomen and pelvis was performed, after the administration of 100 cc Isovue-300.. Sagit danisha and coronal reconstructions were obtained. One or more of the following dose reduction techniques were used: Automated exposure control, adjustment of the mA and kV according to patient si ze, and iterative reconstruction. Unless otherwise specified, incidental findings do not require dedicated imaging follow-up. [id number]. Oral contrast was not given which limits evaluation of bowel and appendix. COMPARISON: none FINDINGS: Liver, spleen, pancreas, adrenals and kidneys appear unremarkable No evidence of diverticulitis. Normal appendix. Borderline thickening of the wall of several loops of ileum. : IMPRESSION: Borderline thickening of the wall of several loops of ileum. This may indicate inflammation and shoul d be correlated clinically
--- NOTE | 2023-12-02 20:30 | ER ---
Nurse's Notes [facility] Name: Kodi Calhoun Age: 23 yrs Sex: Male : 2000 Arrival Date: 12/02/2023 Time: 18:04 Bed 25 Private MD: Diagnosis: Abdominal pain, Generalized Presentation: 12/01 18:29 Chief complaint: Patient states: Lower abdominal pain onset 2.5 weeks ago. Pt states cm10 that eating makes the pain worse and that it is constant. Pt also reports nausea, vomiting, and diarrhea. Coronavirus screen: Client denies travel out of the [place] in the last 14 days. Ebola Screen: Patient denies travel to an Ebola-affected area in the 21 days before illness onset. No symptoms or risks identified at this time. Initial Sepsis Screen: Does the patient meet any 2 criteria? No. Patient's initial sepsis screen is negative. Does the patient have a suspected source of infection? No. Patient's initial sepsis screen is negative. Risk Assessment: Do you want to hurt yourself or someone else? Patient reports no desire to harm self or others. Onset of symptoms was December 02, 2023. 18:29 Method Of Arrival: Ambulatory cm10 18:29 Acuity: DORI 3 cm10 Triage Assessment: 18:31 General: Appears in no apparent distress. comfortable, Behavior is calm, cooperative. cm10 Neuro: No deficits noted. Level of Consciousness is awake, alert, obeys commands, Oriented to person, place, time, situation, Appropriate for age. Respiratory: No deficits noted. Airway is patent Respiratory effort is even, unlabored, Respiratory pattern is regular, symmetrical. Historical: - Allergies: 18:31 No Known Allergies; cm10 - Home Meds: 18:31 None [Active]; cm10 - PMHx: 18:31 None; cm10 - PSHx: 18:31 None; cm10 - Immunization history:: Adult Immunizations up to date. - Infectious Disease History:: Denies. - Social history:: Smoking status: Reported history of juuling and/or vaping. Screenin:45 [facility] ED Fall Risk Assessment (Adult) History of falling in the last 3 months, me1 including since admission No falls in past 3 months (0 pts) Confusion or Disorientation No (0 pts) Intoxicated or Sedated No (0 pts) Impaired Gait No (0 pts) Mobility Assist Device Used No (0 pt) Altered Elimination No (0 pt) Score/Fall Risk Level 0 - 2 = Low Risk Maintained a safe environment, Provided non-skid footwear, Hourly rounding (assess needs \T\ fall precautionary measures) done. Abuse screen: Denies threats or abuse. Nutritional screening: No deficits noted. Tuberculosis screening: No symptoms or risk factors identified. Assessment: 18:45 General: Appears ill, well groomed, well developed, well nourished, Behavior is calm, me1 cooperative, appropriate for age, Reports Lower abdominal pain onset 2.5 weeks ago. Pt states that eating makes the pain worse and that it is constant. Pt also reports nausea, vomiting, and diarrhea. Pain: Complains of pain in abdomen Pain does not radiate. Pain currently is 8 out of 10 on a pain scale. Quality of pain is described as gnawing, Pain began 2-3 weeks ago. Neuro: Level of Consciousness is awake, alert, obeys commands, Oriented to person, place, time, situation, Appropriate for age. Cardiovascular: Patient's skin is warm and dry. Respiratory: Airway is patent Respiratory effort is even, unlabored, Respiratory pattern is regular, symmetrical. GI: Abdomen is non-distended, Bowel sounds present X 4 quads. Abd is soft X 4 quads Reports lower abdominal pain, upper abdominal pain, diarrhea, nausea, vomiting. : No signs and/or symptoms were reported regarding the genitourinary system. EENT: No signs and/or symptoms were reported regarding the EENT system. Derm: Skin is intact, is healthy with good turgor, Skin is pink, warm \T\ dry. Musculoskeletal: No signs and/or symptoms reported regarding the musculoskeletal system. Vital Signs: 18:29 BP 158 / 90; Pulse 66; Resp 14; Temp 98.7; Pulse Ox 99% on R/A; Height 5 ft. 9 in. ; cm10 Pain 4/10; 19:00 BP 135 / 76; Pulse 80; Resp 16; Pulse Ox 100% ; me1 20:00 BP 125 / 77; Pulse 63; Resp 16; Pulse Ox 100% ; me1 20:00 BP 136 / 63; Pulse 79; Resp 16; Temp 98.4; Pulse Ox 100% ; me1 18:29 Pain Scale: Adult cm10 ED Course: 18:06 Patient arrived in ED. im 18:16 Yuliya Burns FNP-C [facility] kb 18:16 Dionte Moore MD is Attending Physician. kb 18:31 Triage completed. cm10 18:31 Arm band placed on right wrist. Patient placed in waiting room. cm10 18:45 Patient has correct armband on for positive identification. Bed in low position. Call me1 light in reach. Side rails up X2. Provided Education on: POC. Verbalized understanding. . Client placed on continuous cardiac and pulse oximetry monitoring. NIBP monitoring applied. quality assurance monitor on. Pulse ox on. NIBP on. 18:45 No provider procedures requiring assistance completed. me1 18:49 Mandie Mcintyre, NAOMI is Primary Nurse. me1 18:59 Initial lab(s) drawn, by me, sent to lab. Inserted saline lock: 22 gauge in left me1 antecubital area, using aseptic technique. 19:00 CBC with Diff Sent. me1 19:00 CMP Sent. me1 19:00 Lipase Sent. me1 20:42 IV discontinued, intact, bleeding controlled, No redness/swelling at site. Pressure me1 dressing applied. Administered Medications: 19:08 Drug: Famotidine IVP 20 mg IVP once; dilute with 10 mL 0.9% NaCl; give over 2 minutes me1 Route: IVP; Site: left antecubital; 19:35 Follow up: Response: No adverse reaction me1 19:08 Drug: TORadol - Ketorolac IVP 15 mg IVP once Route: IVP; Site: left antecubital; me1 19:35 Follow up: Response: No adverse reaction; Pain is decreased me1 19:08 Drug: Ondansetron IVP 4 mg IVP once; over 2 minutes Route: IVP; Site: left antecubital; me1 19:35 Follow up: Response: No adverse reaction; Nausea is decreased me1 19:08 Drug: NS 0.9% IV 1000 ml IV at 1 bolus Per protocol; to be given as a bolus over 60 me1 minutes Route: IV; Rate: 1 bolus; Site: left antecubital; 20:44 Follow up: Response: No adverse reaction; IV Status: Completed infusion; IV Intake: me1 1000ml Medication: 18:45 VIS not applicable for this client. me1 Intake: 20:44 IV: 1000ml; Total: 1000ml. me1 Outcome: 20:29 Discharge ordered by . doe 20:42 Discharged to home ambulatory, me1 20:42 Condition: stable 20:42 Discharge instructions given to patient, Instructed on discharge instructions, follow up and referral plans. medication usage, Demonstrated understanding of instructions, follow-up care, medications, Prescriptions given X 2, 20:42 Patient left the ED. me1 Signatures: Yuliya Burns, EDWARD-C EDWARD-Isidra Camejo Clarissa, RN RN cm10 Mandie Mcintyre RN RN me1 Corrections: (The following items were deleted from the chart) 19:54 18:29 Chief complaint: Patient states: Lower abdominal pain onset 2.5 weeks ago. Pt me1 states that eating makes the pain worse and that it is constant. Pt also reports nausea, vomiting, and diarrhea. cm10
--- NOTE | 2023-12-02 20:30 | EDPHYS ---
Physician Documentation [facility] Name: Kodi Calhoun Age: 23 yrs Sex: Male : 2000 Arrival Date: 12/02/2023 Time: 18:04 Bed 25 Private MD: ED Physician Dionte Moore HPI: 12/01 18:27 This 23 yrs old Male presents to ER via Unassigned with complaints of Abdominal Pain, kb Vomiting/Diarrhea. 18:27 Pt is a 23 year old male who presents for 2.5 week history of abd pain, nausea, kb vomiting, diarrhea. States pain increases after eating. States pain has been constant. Denies fever. . Historical: - Allergies: 18:31 No Known Allergies; cm10 - Home Meds: 18:31 None [Active]; cm10 - PMHx: 18:31 None; cm10 - PSHx: 18:31 None; cm10 - Immunization history:: Adult Immunizations up to date. - Infectious Disease History:: Denies. - Social history:: Smoking status: Reported history of juuling and/or vaping. ROS: 18:27 Constitutional: As per HPI kb Exam: 18:27 Constitutional: This is a well developed, well nourished patient who is awake, alert, kb and in no acute distress. Head/Face: Normocephalic, atraumatic. ENT: Moist Mucous membranes Cardiovascular: Regular rate Respiratory: Respirations even and unlabored. No increased work of breathing. Talking in full sentences Skin: Warm, dry with normal turgor. Normal color. MS/ Extremity: Pulses equal, no cyanosis. Neurovascular intact. Full, normal range of motion. Neuro: Awake and alert, GCS 15, oriented to person, place, time, and situation. Vital Signs: 18:29 BP 158 / 90; Pulse 66; Resp 14; Temp 98.7; Pulse Ox 99% on R/A; Height 5 ft. 9 in. ; cm10 Pain 4/10; 19:00 BP 135 / 76; Pulse 80; Resp 16; Pulse Ox 100% ; me1 20:00 BP 125 / 77; Pulse 63; Resp 16; Pulse Ox 100% ; me1 20:00 BP 136 / 63; Pulse 79; Resp 16; Temp 98.4; Pulse Ox 100% ; me1 18:29 Pain Scale: Adult cm10 MDM: 18:17 Medical Screening Exam initiated kb 20:29 Differential diagnosis: gastritis, gastroesophageal reflux disease, non-specific abd kb pain. Data reviewed: vital signs, nurses notes. 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 12/01 18:30 Order name: CBC with Diff kb 12/01 18:30 Order name: CMP kb 12/01 18:30 Order name: Lipase kb 12/01 19:18 Order name: CBC with Automated Diff; Complete Time: 19:29 EDMS 12/01 19:36 Order name: Comprehensive Metabolic Panel; Complete Time: 19:39 EDMS 12/01 19:36 Order name: Lipase; Complete Time: 19:39 EDMS 12/01 18:30 Order name: CT Abd/Pelvis - IV Contrast Only kb 12/01 19:57 Order name: CT; Complete Time: 20:04 EDMS 12/01 18:30 Order name: IV Saline Lock; Complete Time: 19:00 kb 12/01 18:30 Order name: Labs collected and sent; Complete Time: 19:00 kb Administered Medications: 19:08 Drug: Famotidine IVP 20 mg IVP once; dilute with 10 mL 0.9% NaCl; give over 2 minutes me1 Route: IVP; Site: left antecubital; 19:35 Follow up: Response: No adverse reaction me1 19:08 Drug: TORadol - Ketorolac IVP 15 mg IVP once Route: IVP; Site: left antecubital; me1 19:35 Follow up: Response: No adverse reaction; Pain is decreased me1 19:08 Drug: Ondansetron IVP 4 mg IVP once; over 2 minutes Route: IVP; Site: left antecubital; me1 19:35 Follow up: Response: No adverse reaction; Nausea is decreased me1 19:08 Drug: NS 0.9% IV 1000 ml IV at 1 bolus Per protocol; to be given as a bolus over 60 me1 minutes Route: IV; Rate: 1 bolus; Site: left antecubital; 20:44 Follow up: Response: No adverse reaction; IV Status: Completed infusion; IV Intake: me1 1000ml Disposition Summary: 12/02/23 20:29 Discharge Ordered Notes: Location: Home kb Condition: Stable kb Diagnosis - Abdominal pain, Generalized kb Followup: kb - With: Emergency Department - When: As needed - Reason: Worsening of condition Followup: kb - With: Private Physician - When: 2 - 3 days - Reason: Recheck today's complaints, Continuance of care, Re-evaluation by your physician Discharge Instructions: - Discharge Summary Sheet kb - Abdominal Pain, Adult, [id number] kb Forms: - Medication Reconciliation Form kb - Antibiotic Education kb - Prescription Opioid Use kb - Patient Portal Instructions kb - Leadership Thank You Letter kb Prescriptions: - Zofran 4 mg Oral tablet - take 1 tablet ORAL route every 6 hours As needed; 12 tablet; Refills: 0, kb Product Selection Permitted - dicyclomine 20 mg Oral tablet - take 1 tablet ORAL route 4 times per day As needed; 20 tablet; Refills: 0, kb Product Selection Permitted Addendum: 12/05/2023 22:49 Co-signature as Attending Physician, Dionte Moore MD I reviewed the patient's care r n provided by the Advanced Practice Provider and agree with the diagnosis and treatment plan. Signatures: Dispatcher [employer] Yuliya Art, RADIATION ONCOLOGY MANAGER-C RADIATION ONCOLOGY MANAGER-Ckb Dionte Moore MD MD rn Martinez, Clarissa, RN RN cm10 Mandie Mcintyre RN RN me1
[2023-12-03 06:07] VITALS: O2SAT 100
[2023-12-03 06:09] VITALS: BP 136/63; TEMP 98.4
== END 2023-12-02 20:42 | disposition home or self-care (01) ==
LOC: ER 18:04
DX: R10.84 Generalized abdominal pain (principal)
CPT/HCPCS: 36415; 74177; 80053; 83690; 85025; 96361; 96374; 96375; 99285; J2405; J7030; Q9967

== ENCOUNTER 2024-03-28 14:43 | Emergency (ER) | payer SELFPAY ==
--- OUTSIDE RECORDS SUMMARY | 2024-03-28 14:47 | XMS REPORT | Continuity of Care Document ---
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 Limitations to patient care and compliance: none. Assessment/Summary: The patient has a negative work-up in the [...] He can return for any questions or concerns. History, physical exam findings, results of visit, differential diagnosis, medication regimens and plan of future care have been considered. Additional MDM may be found in the ED course. Differential diagnosis considered and final disposition made based on information gathered during evaluation and may not be completely ruled out or specifically listed. Vital signs were rechecked before final disposition. Diagnosis Final diagnoses: [R53.1] Weakness (Primary) [F12.90] Marijuana use [R94.31] Abnormal EKG Disposition & Follow Up ED Disposition ED Disposition Disch - Home Condition Stable Comment -- Patient's Medications No medications on file Contact information for follow-up Pcp, Patient Does Not Have A Relationship: PCP - [address] [address] Jenna Waterman Jr., MD Clinical [employer] [facility] Emergency Department [employer] is used frequently and may produce errors. Promptly contact for obvious discrepancies. Jenna Waterman MD 09/29/[address] [facility]
[2024-03-28 15:56] LABS: Absolute Monocytes 0.5 K/uL (0.1-1.3); Absolute Neutrophil 4.7 K/uL (1.8-8.0); Basophils % 0.5 % (0-1.3); Eosinophils % 0.2 % (0-4.4); Hemoglobin 17.4 g/dL (13.6-17.9); Lymphocytes % 16.4 % (15.3-44.8); MCH 29.8 pg (27.0-35.0); MCHC 33.5 g/dL (32.0-36.0); Monocytes % 7.7 % (3.3-12.3); Neutrophils % 75.2 % (41.7-73.7); Nucleated Red Blood Cells % 0.1 % (0-0); Platelets 168 thou/uL (152-406); RBC Red Blood Cell Count 5.84 M/uL (4.33-5.43)
[2024-03-28 16:09] LABS: Albumin 4.8 g/dL (3.4-5.0); Albumin/Globulin Ratio 1.4 (1.1-1.8); Anion Gap 9.8 mEq/L (5.0-15.0); Bilirubin Total 0.7 mg/dL (0.2-1.0); Globulin 3.5 g/dL (2.3-3.5); Potassium 3.8 mEq/L (3.5-5.1); Protein, Total 8.3 g/dL (6.4-8.2)
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
== END 2024-03-28 17:59 | disposition home or self-care (01) ==
LOC: ER 14:43
DX: S21.109A Unspecified open wound of unspecified front wall of thorax without penetration into thoracic cavity, initial encounter (principal)
CPT/HCPCS: 36415; 71260; 80053; 85025; 99284; Q9967

== ENCOUNTER 2024-11-03 08:20 | Emergency (ER) | payer BC, SELFPAY ==
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
[2024-11-03 10:30] VITALS: BP 143/68; TEMP 98; O2SAT 100
== END 2024-11-03 08:55 | disposition home or self-care (01) ==
LOC: ER 08:20
DX: G58.9 Mononeuropathy, unspecified (principal)
CPT/HCPCS: 99281